=== PATIENT | female | born 1960 | race Caucasian/White ===

== ENCOUNTER 2019-10-16 08:00 | Outpatient (CLI) | payer BC ==
[2019-10-16 12:59] LABS: BASOPHILS # (AUTO) 0.1 10^3/uL (0.0-0.1); BASOPHILS % (AUTO) 0.7 %; EOSINOPHILS # (AUTO) 0.3 10^3/uL (0.0-0.7); EOSINOPHILS % (AUTO) 2.5 %; HGB - HEMOGLOBIN 10.1 g/dL (12.0-16.0); LYMPHOCYTES # (AUTO) 1.5 10^3/uL (1.5-3.5); MEAN CORPUSCULAR HEMOGLOBIN 25.7 pg (27.0-31.0); MEAN CORPUSCULAR VOLUME 85.8 fL (81.0-99.0); MEAN PLATELET VOLUME 10.7 fL (7.9-10.8); MONOCYTES # (AUTO) 0.7 10^3/uL (0.0-1.0); MONOCYTES % (AUTO) 5.8 %; NEUTROPHILS # (AUTO) 9.2 10^3/uL (1.5-6.6); NEUTROPHILS % (AUTO) 77.5 %; PLT - PLATELET COUNT 423 10^3/uL (130-450); RED BLOOD COUNT 3.93 10^6/uL (4.20-5.40); RED CELL DISTRIBUTION WIDTH 16.9 % (12.0-15.0); WHITE BLOOD COUNT 11.8 x10^3/uL (4.8-10.8)
[2019-10-16 13:27] LABS: ALBUMIN 3.3 g/dL (3.2-5.5); ALBUMIN/GLOBULIN RATIO 1.1 (1.0-2.2); BILIRUBIN,TOTAL 0.6 mg/dL (0.2-1.0); CREATININE 0.8 mg/dL (0.4-1.0); TOTAL PROTEIN 6.3 g/dL (6.7-8.2)
== END 2019-10-16 23:59 | disposition home or self-care (01) ==
LOC: LAB.WCP 08:00
PROVIDERS: ATTEND Family Medicine
DX: F10.20 Alcohol dependence, uncomplicated (principal); E03.9 Hypothyroidism, unspecified; D50.9 Iron deficiency anemia, unspecified
CPT/HCPCS: 36415; 80053; 84443; 85025

== ENCOUNTER 2020-01-08 04:33 | Outpatient (CLI) | payer BC | END 2020-01-08 04:34 | disposition critical access hospital (66) | LOC: EMS 04:33 | PROVIDERS: ATTEND Surgery | DX: S89.91XA Unspecified injury of right lower leg, initial encounter (principal); X58.XXXA Exposure to other specified factors, initial encounter; Y92.009 Unspecified place in unspecified non-institutional (private) residence as the place of occurrence of the external cause | CPT/HCPCS: A0425; A0427 ==

== ENCOUNTER 2020-01-08 04:47 | Emergency (ER) | payer BC ==
--- NOTE | 2020-01-08 04:57 | ED Physician Documentation ---
History of Present Illness - Stated complaint Stated Complaint: GLF/ BROKEN LEG - Chief complaint Chief Complaint: Trauma Ext - Additonal information Additional information: This is a 59-year-old female with a history of hypothyroidism anxiety, and daily alcohol use, presents with an open fracture to her right leg. Patient states she was walking in her house and she heard a crack and then fell and she noticed bleeding in the bone sticking out of her right ankle. EMS was called when they arrived she had an obvious open fracture. She received 2 mg of morphine in route with excellent relief of her pain. She denies numbness in the leg, states that she can wiggle the fingers. She did not hit her head or any other part of her body. She states that she did drink around 2 hours prior to injury, she states she typically drinks a sixpack of beer a day. She denies any history of alcohol withdrawal. She has no head pain neck pain back pain chest pain or abdominal discomfort. Review of Systems Constitutional: denies: Fever Cardiac: denies: Chest pain / pressure Respiratory: denies: Dyspnea GI: denies: Abdominal Pain Skin: reports: Laceration (s) Musculoskeletal: reports: Extremity pain Neurologic: denies: Focal weakness PD PAST MEDICAL HISTORY - Past Medical History Cardiovascular: None, Murmur Respiratory: None Endocrine/Autoimmune: HyPOthyroidism GI: None : None Psych: Depression, Anxiety, Panic attacks, Claustrophobia Musculoskeletal: None - Past Surgical History General: EGD /NUCLEAR MEDICINE PET CT TECHNOLOGIST: Hysterectomy HEENT: Tonsil/Adenoidectomy - Present Medications Home Medications: Ambulatory Orders Medication Instructions Recorded Confirmed Escitalopram [Lexapro] 10 mg PO DAILY 12/06/14 01/08/20 Levothyroxine [Synthroid] 75 mcg PO QDAC 12/06/14 01/08/20 Olanzapine/Fluoxetine HCl [Symbyax 1 each PO DAILY 12/06/14 01/08/20 12-25 mg Capsule] Zolpidem [Ambien] 10 mg PO HS 12/06/14 01/08/20 oxyCODONE/ACET 5/325 [Percocet 5 5 mg PO DAILY PRN 12/06/14 01/08/20 mg/325 mg] - Allergies Allergies/Adverse Reactions: Allergies Allergy/AdvReac Type Severity Reaction Status Date / Time No Known Drug Allergies Allergy Verified 01/08/20 04:59 PD ED PE NORMAL - Vitals Vital signs reviewed: Yes - General General: Alert and oriented X 3 - HEENT HEENT: Atraumatic, PERRL - Neck Neck: Supple, no meningeal sign - Cardiac Cardiac: RRR, No murmur - Respiratory Respiratory: No respiratory distress, Clear bilaterally - Abdomen Abdomen: Normal bowel sounds, Soft, Non tender, Non distended - Derm Derm: Warm and dry - Extremities Extremities: Other (On the right lower extremity there is an obvious open fracture of the ankle the tibia is extending out medially through a 5 cm laceration, the articular surface of the tibia is clearly visible and the foot is shifted laterally with a clear fracture dislocation. She has a strong 2+ dorsalis pedis pulse. The posterior tibial artery is actually visible in the laceration and it appears transected. Her sensation is intact over the entire foot, she is able to wiggle her toes. The remainder of the proximal tibia and fibula, as well as the upper leg are atraumatic in appearance. There is no significant active bleeding, she had a slight bruise on arrival.) - Neuro Neuro: Alert and oriented X 3, No motor deficit, No sensory deficit, Normal speech - Psych Psych: Normal mood, Normal affect Results - Vitals Vitals: Vital Signs - 24 hr 01/08/20 01/08/20 01/08/20 04:49 05:02 05:17 Temperature 36.5 C Heart Rate 81 78 78 Respiratory 16 21 18 Rate Blood Pressure 108/61 112/68 109/71 O2 Saturation 99 99 100 01/08/20 01/08/20 01/08/20 05:22 05:27 05:30 Temperature Heart Rate 78 82 90 Respiratory 15 13 15 Rate Blood Pressure 109/72 117/75 139/91 H O2 Saturation 99 98 100 01/08/20 01/08/20 01/08/20 05:37 05:41 05:45 Temperature Heart Rate 82 82 83 Respiratory 10 L 12 15 Rate Blood Pressure 145/84 H 139/76 H 126/81 H O2 Saturation 99 98 97 01/08/20 01/08/20 01/08/20 05:47 05:56 06:00 Temperature Heart Rate 81 85 82 Respiratory 11 L 16 14 Rate Blood Pressure 126/81 H 116/66 111/62 O2 Saturation 96 96 96 01/08/20 01/08/20 01/08/20 06:02 06:04 06:06 Temperature Heart Rate 90 95 97 Respiratory 18 19 15 Rate Blood Pressure 111/62 111/62 O2 Saturation 100 100 98 01/08/20 01/08/20 01/08/20 06:08 06:10 06:14 Temperature Heart Rate 98 99 105 H Respiratory 23 20 21 Rate Blood Pressure 100/58 L 100/58 L 149/93 H O2 Saturation 96 100 94 01/08/20 01/08/20 01/08/20 06:20 06:30 06:36 Temperature 36.8 C Heart Rate 102 H 95 89 Respiratory 18 14 15 Rate Blood Pressure 109/90 H 112/88 H 128/89 H O2 Saturation 98 97 97 01/08/20 01/08/20 01/08/20 06:38 06:43 06:47 Temperature 36.7 C Heart Rate 89 87 91 Respiratory 16 12 14 Rate Blood Pressure 128/89 H 123/76 122/66 O2 Saturation 95 95 96 01/08/20 01/08/20 01/08/20 06:54 06:56 07:01 Temperature 36.8 C Heart Rate 86 86 96 Respiratory 18 24 13 Rate Blood Pressure 122/66 106/65 110/67 O2 Saturation 96 96 97 01/08/20 01/08/20 01/08/20 07:20 08:00 08:30 Temperature 36.7 C Heart Rate 88 85 84 Respiratory 22 12 14 Rate Blood Pressure 103/66 98/73 120/68 O2 Saturation 95 96 96 Oxygen O2 Source Nasal cannula Oxygen Flow Rate 2 - Labs Labs: Laboratory Tests 01/08/20 01/08/20 01/08/20 05:15 05:15 05:15 WBC 20.5 H RBC 3.84 L Hgb 10.6 L Hct 32.7 L MCV 85.2 MCH 27.6 MCHC 32.4 RDW 17.9 H Plt Count 450 MPV 9.3 Neut # (Auto) Not Reportable Lymph # (Auto) Not Reportable [place] # (Auto) Not Reportable Eos # (Auto) Not Reportable Baso # (Auto) Not Reportable Absolute Nucleated RBC Not Reportable Total Counted 100 Band Neuts % (Manual) 0 Abnorm Lymph % (Manual) 0 Nucleated RBC % Not Reportable Neutrophils # (Manual) 18.0 H Lymphocytes # (Manual) 1.8 Monocytes # (Manual) 0.6 Eosinophils # (Manual) 0.0 Basophils # (Manual) 0.0 Differential Comment MANUAL DIFFERENTIAL WBC Morphology NORMAL APPEARANCE Platelet Estimate NORMAL (130-450,000) Platelet Morphology NORMAL APPEARANCE RBC Morph Micro Appear NORMAL APPEARANCE PT 19.3 H INR 1.7 H Sodium 132 L Potassium 4.0 Chloride 96 L Carbon Dioxide 23 Anion Gap 13.0 BUN 5 L Creatinine 0.8 Estimated GFR (MDRD) 73 L Glucose 126 H Calcium 8.3 L Total Bilirubin 0.7 AST 35 ALT 36 Alkaline Phosphatase 97 Total Protein 6.2 L Albumin 3.3 Globulin 2.9 Albumin/Globulin Ratio 1.1 Lipase 32 Ethyl Alcohol 174.7 - Rads (name of study) XR ankle r Radiology: Other (Lateral dislocation of the talus with oblique fibular fracture and posterior malleolus are fracture) XR ankle R post reduction Radiology: Other (Improved alignment, medial clear space widening and posterior malleolus fracture evident in addition to fibula fracture) Procedures - Reduction Body part reduced: Right, Ankle Fracture or dislocation: Fracture dislocation Anesthesia: Conscious sedation Reduction aftercare: Other (After verbal and written consent was obtained, sedation was acheived with ketamine as noted below. Using traction to pull the foot longitudinally and medially, I was unable to perform a complete reduction, the talus appeared to get caught or stuck and slid back out of place. Given the obvious soft tissue and arterial injury from the fracture/dislocation, I am concerned that repeated unsuccessful attempts at reduction will cause more i njury so Dr. Mcdaniel was consulted for assitance with reduction, he arrived and reduction was performed - refer to his note for details.) - Procedural sedation Sedation prep: Informed consent, Time out completed, AHA 2 - mild disease (Mallampati II, thyromental distance 3 finger breadths. Risk factors for difficult airway include obesity.), IV O2 monitor, ET CO2 monitor, RT present, Other (Airway equipment including BVM present.) Sedation medications: fentanyl, ketamine Patient status during sedation: Unresponsive Sedation recovery: Back to baseline, Other (Mild agitation on recovery, but this resolved quickly wihtout pharmacologic intervention.) Time in sedation (Minutes): 36 PD MEDICAL DECISION MAKING - ED course ED course: On arrival patient is awake, alert, she has an obvious fractures location of her right ankle, otherwise her exam is atraumatic. Her pain is well controlled. She is given 2 g of cefazolin IV, and x-rays were obtained confirming a fracture dislocation of her right ankle. She has strong DP pulse and capillary refill, is able to wiggle all toes, sensation intact. Procedural sedation was performed with ketamine and I attempted reduction, was quite difficult and unstable, Dr. Mcdaniel of orthopedics Was consulted, and using ketamine we were able to reduce the fracture dislocation. Afterward she continues to be able to wiggle her toes, has brisk capillary refill, and can feel sensation over her entire foot. A Ortho-Glass posterior slab and stirrup were placed, I did clean the wound with a liter of normal saline and placed a clean gauze with sterile normal saline over top of the wound prior to splinting and reduction. Postreduction films were obtained. After speaking with Dr. Mcdaniel, given patient has a posterior tibial artery injury and very unstable fracture, it sounds like she will be best served at [facility]. I spoke with [facility] and Dr. Velázquez the [facility] emergency department accepted the patient for transfer. She will be transferred via ALS. Patient agrees with the plan. Her labs are notable for a mildly elevated INR though she is not on blood thinners, she also has a leukocytosis likely from demargination, and a mild hyponatremia. I think her mild lab abnormalities are likely secondary to her alcohol use, sounds like she is a daily drinker. She has no signs of withdrawal at this time but would likely benefit from CIWA scoring when she is admitted. Pt remained stable with well controlled pain at the time of transfer. Departure - Departure Disposition: 02 Transfer Acute Care Hosp Clinical Impression: Fracture dislocation of ankle Qualifiers: Encounter type: initial encounter Fracture type: open Open fracture type: open type III Laterality: right Qualified Code(s): S82.891C - Other fracture of right lower leg, initial encounter for open fracture type IIIA, IIIB, or IIIC Condition: Stable Discharge Date/Time: 01/08/20 08:35
[2020-01-08] MEDS ORDERED: KETAMINE 500 MG/10 ML VIAL IVP STA ×6 (05:00→06:14)
[2020-01-08] MEDS ORDERED: fentaNYL 100 MCG/2 ML VIAL IVP STA (05:05)
[2020-01-08 05:23] LABS: BASOPHILS % (AUTO) 0.5 %; HGB - HEMOGLOBIN 10.6 g/dL (12.0-16.0); LYMPHOCYTES % (AUTO) 10.1 %; MEAN CORPUSCULAR HEMOGLOBIN 27.6 pg (27.0-31.0); MEAN CORPUSCULAR HGB CONC 32.4 g/dL (32.0-36.0); MEAN CORPUSCULAR VOLUME 85.2 fL (81.0-99.0); MEAN PLATELET VOLUME 9.3 fL (7.9-10.8); MONOCYTES % (AUTO) 5.1 %; NEUTROPHILS % (AUTO) 82.6 %; PLT - PLATELET COUNT 450 10^3/uL (130-450); RED BLOOD COUNT 3.84 10^6/uL (4.20-5.40); RED CELL DISTRIBUTION WIDTH 17.9 % (12.0-15.0); WHITE BLOOD COUNT 20.5 x10^3/uL (4.8-10.8)
--- NOTE | 2020-01-08 05:23 | XRAY Report ---
Reason: open fracture Procedure Date: 01/08/2020 Accession Number: [id number] / [id number] Procedure: XR - Ankle 2 View RT CPT Code: Final Report FULL RESULT: EXAM: RIGHT ANKLE RADIOGRAPHY EXAM DATE: 01/08/2020 05:14 AM. CLINICAL HISTORY: Open fracture. COMPARISON: None. TECHNIQUE: 2 views. FINDINGS: Bones: Oblique fibular shaft fracture and posterior malleolar fracture. Joints: Lateral dislocation of the talus from the tibia. Soft Tissues: Soft tissue swelling. Open fracture medially. IMPRESSION: Lateral dislocation of the talus, with oblique fibular fracture and posterior malleolar fracture. RADIA
[2020-01-08] MEDS ORDERED: ONDANSETRON 4 MG/2 ML VIAL IVP STA (05:24)
[2020-01-08] MEDS ORDERED: ONDANSETRON 4 MG/2 ML VIAL ONE (05:26)
[2020-01-08 05:29] LABS: INR 1.7 (0.8-1.2); PT - PROTHROMBIN TIME 19.3 secs (9.9-12.6)
[2020-01-08 05:30] LABS: ABNORMAL LYMPHS % (MANUAL) 0 %; BAND NEUTROPHILS % (MANUAL) 0 %
[2020-01-08] MEDS ORDERED: SODIUM CHLORIDE 0.9% 1,000 ML IV ONE (05:33)
[2020-01-08] MEDS ORDERED: ceFAZolin 2 GM in SODIUM CHLORIDE 0.9% 100ML 100 ML IV STA (05:34)
[2020-01-08 05:46] LABS: ALBUMIN 3.3 g/dL (3.2-5.5); ALBUMIN/GLOBULIN RATIO 1.1 (1.0-2.2); BILIRUBIN,TOTAL 0.7 mg/dL (0.2-1.0); CALCIUM 8.3 mg/dL (8.5-10.3); CREATININE 0.8 mg/dL (0.4-1.0); TOTAL PROTEIN 6.2 g/dL (6.7-8.2)
[2020-01-08 05:57] LABS: LYMPHOCYTES # (MANUAL) 1.8 10^3/uL (1.5-3.5); LYMPHOCYTES % (MANUAL) 9 %; MONOCYTES # (MANUAL) 0.6 10^3/uL (0.0-1.0)
[2020-01-08 05:58] LABS: PLATELET MORPHOLOGY NORMAL APPEARANCE (NORMAL); RBC MORPHOLOGY (MULTIPLE) NORMAL APPEARANCE (NORMAL)
[2020-01-08 05:59] LABS: DIFFERENTIAL COMMENT MANUAL DIFFERENTIAL; PLATELET ESTIMATE, MANUAL NORMAL (130-450,000) (NORMAL)
--- NOTE | 2020-01-08 06:56 | XRAY Report ---
Reason: post-reduction Procedure Date: 01/08/2020 Accession Number: [id number] / [id number] Procedure: XR - Ankle 3 View RT CPT Code: Final Report FULL RESULT: EXAM: RIGHT ANKLE RADIOGRAPHY EXAM DATE: 01/08/2020 06:41 AM. CLINICAL HISTORY: Post-reduction. COMPARISON: ANKLE 2 VIEW RT 01/08/2020 4:52 AM. TECHNIQUE: 3 views. FINDINGS: Bones: Improved alignment of fibular fracture and posterior malleolar fracture. Osseous loose body in the medial ankle mortise. Joints: Improved alignment of the talus relative to the tibia, but there is persistent lateral subluxation, with widening of the medial mortise. Soft Tissues: Soft tissue swelling. Splint material obscures fine detail. IMPRESSION: Reduction of talar dislocation, with residual lateral subluxation. Improved alignment of fractures. Osseous loose body in the medial ankle mortise. RADIA
[2020-01-08] MEDS ORDERED: MORPHINE 2 MG/ML CARPUJECT IVP PRN (07:49)
[2020-01-08] MEDS ORDERED: TETANUS/DIPHTHERIA/PERTUSSIS 0.5 ML SYRINGE IM ONE (08:17)
[2020-01-08 09:33] VITALS: BP 120/68
--- NOTE | 2020-01-08 17:58 | CONSULTATION NOTE ---
Referring Provider Name of Referring Provider:: Oumar Red MD Consult Date: 01/08/20 Chief Complaint - Chief Complaint Chief Complaint: Asked to assist with reduction of right open ankle fracture dislocation History of Present Illness - History Obtained From History obtained from: Patient and Dr. Red - History of Present Illness HPI Comment/Other: Alesha is a 59-year-old female who reportedly sustained a ground-level fall injuring her right ankle. She reportedly was taken to the emergency room and found to have an open ankle fracture dislocation. Orthopedic MD was contacted initially, case was discussed and plan for reduction in emergency department splinting was developed. Given incomplete orthopedic coverage the plan was to have the patient transferred for definitive care and observation. After attempted reduction by ER MD which failed, orthopedics was again contacted and assistance for reduction requested.I n the meantime by report, it was determined that while the patient had good vascular supply and gross neuro function that the posterior tibial artery was also likely injured. Patient seen in the emergency room. She denies other significant injury aside from the right ankle. History - Past Medical History Cardiovascular: reports: None, Murmur Respiratory: reports: None Endocrine/Autoimmune: reports: HyPOthyroidism GI: reports: None : reports: None Psych: reports: Depression, Anxiety, Panic attacks, Claustrophobia Musculoskeletal: reports: None MRSA Hx?: No - Past Surgical History General: reports: EGD /LVN: reports: Hysterectomy HEENT: reports: Tonsil/Adenoidectomy - POLST Patient has POLST: No Meds/Allgy - Home Medications Home Medications: Ambulatory Orders Medication Instructions Recorded Confirmed Escitalopram [Lexapro] 10 mg PO DAILY 12/06/14 01/08/20 Levothyroxine [Synthroid] 75 mcg PO QDAC 12/06/14 01/08/20 Olanzapine/Fluoxetine HCl [Symbyax 1 each PO DAILY 12/06/14 01/08/20 12-25 mg Capsule] Zolpidem [Ambien] 10 mg PO HS 12/06/14 01/08/20 oxyCODONE/ACET 5/325 [Percocet 5 5 mg PO DAILY PRN 12/06/14 01/08/20 mg/325 mg] - Allergies Allergies/Adverse Reactions: Allergies Allergy/AdvReac Type Severity Reaction Status Date / Time No Known Drug Allergies Allergy Verified 01/08/20 04:59 Exam - Physical Exam Comments/Other: Upon initial examination patient is noted to have a long oblique medial sided right ankle open wound with the distal tibia and medial malleolus as well as articular surface of the tibia visualized. There appears to be a ligated posterior tibial artery just poterior to visualized medial maleolus, though no other neurovascular structures are visualized well nor are medial sided te ndinous structures. Patient is able to initiate flexion extension of toes and ankle she has a palpa ble dorsalis pedis with capillary refill less than 1 to 1/2 seconds all toes with all toes equally warm throughout. Foot compartments calf soft. She has gross light touch sensation noted in the toes and webspaces. Post reduction and splinting patient is also able to flex extend her toes she has brisk capillary refill unchanged from prereduction toes equally warm throughout. The talus is noted to be grossly under the tibia and the medial malleolus is now inside the soft tissue envelope. Conclusion/Plan - Diagnosis Diagnosis: Right open bimalleolar fracture dislocation of ankle - Lab Results Fish Bones: 01/08/20 05:15 01/08/20 05:15 - Other Other Results/Comments: Alesha is a 59-year-old female with a right open ankle bimalleolar fracture dislocation. She also appears to have a posterior tibial artery injury though with continued good vascular supply to the foot and toes. Patient is encountered prior to successful reduction and the injury is discussed with her. Significance of her injury and the potential for significant neurovascular injury and the potential for worsening of that with attempted reduction is discussed. Risks reviewed though R/B/A previously discussed and informed consent previously given. With anesthesia/sedation per emergency medicine team, patient has reduction and splinting performed. Please see procedure note below. We discussed incomplete orthopedic coverage. We discussed the importance of timely orthopedic surgical intervention and the importance of appropriate monitoring. This will not be available during the entire time that it would be required. Furthermore it does appear as if the patient has a vascular injury particularly to the posterior tibial artery. Fortunately she has good vascular supply to her foot and toes though there may be indication for potential vascular repair. The services are unavailable at this hospital at this time. This is discussed with Dr. Red as it had been previously and immediate transfer is advised. Procedure: Reduction under sedation of right open ankle bimalleolar fracture dislocation Procedural indications right open ankle fracture dislocation Procedure informed consent previously given after discussion with ER staff. This is again discussed with patient with orthopedic corporate consultant. Patient verbalized her wish to proceed with attempted reduction. After administration of ketamine and other medications per emergency medicine team with a traction countertraction maneuver with flexion of the hip to 90 degrees and knee to 90 degrees the injury orientation is re-created thereby attempting to get the talus around the distal lateral aspect of the tibia this is initially successful then lost and then reperformed and able to maintain with reduction of the talus under the tibia. A sterile tongue depressor is used to help guide the skin around the medial malleolus and to help avoid entrapment of soft tissues. It should be noted that there appears to be a ligated end of the posterior tibial artery just posterior to the medial malleolus which is unchanged post reduction. There is no obvious interposed tissue in the medial gutter. A moist saline sterile gauze is placed in the wound followed by sterile 4 x 4's Followed by soft padding and fiberglass splinting with maintenance of reduction until hardening of the fiberglass. Patient is able to continue to flex and extend toes and has brisk capillary refill all toes post reduction and splinting Postreduction films show significantly improved position of the talus under the tibia though not completely reduced medially. There do appear to be potential intervening bone fragments in the medial gutter and continued displacement at the syndesmosis and fibula.
== END 2020-01-08 08:35 | disposition short-term general hospital (02) ==
LOC: EDUNIT# → ED 04:47
DX: S82.841C Displaced bimalleolar fracture of right lower leg, initial encounter for open fracture type IIIA, IIIB, or IIIC (principal); S85.1 Injury of tibial artery; W18.30XA Fall on same level, unspecified, initial encounter; Y93.01 Activity, walking, marching and hiking; Y92.009 Unspecified place in unspecified non-institutional (private) residence as the place of occurrence of the external cause
CPT/HCPCS: 27810; 36415; 80053; 80320; 83690; 85025; 85610; 90471; 94770; 99152; 99153; 99284

== ENCOUNTER 2020-01-08 09:01 | Outpatient (CLI) | payer BC | END 2020-01-08 09:02 | disposition short-term general hospital (02) | LOC: EMS 09:01 | PROVIDERS: ATTEND Surgery | DX: S82.891B Other fracture of right lower leg, initial encounter for open fracture type I or II (principal); S85.16 Unspecified injury of posterior tibial artery; X58.XXXA Exposure to other specified factors, initial encounter; Y92.009 Unspecified place in unspecified non-institutional (private) residence as the place of occurrence of the external cause | CPT/HCPCS: A0425; A0426 ==

== ENCOUNTER 2020-03-27 15:30 | Outpatient (CLI) | payer BC | END 2020-03-27 23:59 | disposition home or self-care (01) | LOC: LAB.R 15:30 | PROVIDERS: ATTEND Family Medicine | DX: L97.519 Non-pressure chronic ulcer of other part of right foot with unspecified severity (principal) | CPT/HCPCS: 87070; 87181; 87205 ==

== ENCOUNTER 2020-06-10 13:15 | Outpatient (CLI) | payer BC | END 2020-06-10 13:16 | disposition critical access hospital (66) | LOC: EMS 13:15 | PROVIDERS: ATTEND Surgery | DX: M25.512 Pain in left shoulder (principal); M25.511 Pain in right shoulder; M54.2 Cervicalgia; R60.0 Localized edema; R53.1 Weakness; W05.0XXA Fall from non-moving wheelchair, initial encounter; Y92.008 Other place in unspecified non-institutional (private) residence as the place of occurrence of the external cause | CPT/HCPCS: A0425; A0429 ==

== ENCOUNTER 2020-06-10 13:35 | Emergency (ER) | payer BC ==
[2020-06-10] MEDS ORDERED: PANTOPRAZOLE 40 MG VIAL IVP STA (13:51)
[2020-06-10] MEDS ORDERED: SODIUM CHLORIDE 0.9% 1,000 ML IV STA ×3 (13:51→13:55)
--- NOTE | 2020-06-10 14:01 | ED Physician Documentation ---
PD HPI GI BLEED - Stated complaint Stated Complaint: GLF/WEAKNESS - History obtained from History obtained from: Patient, EMS - History of Present Illness Timing - onset: How many days ago (3) Timing - duration: Days (3) Timing - details: Gradual onset Pain level max: 0 Pain level now: 0 Associated symptoms: Black/tarry stool Contributing factors: Alcohol use (States has not had a drink for 3 to 4 days). No: Sick contact, Bad food, Travel, Recent antibiotics, Aspirin use, NSAID use, Anticoagulated Improved by: Other (nothing) Worsened by: Other (nothing) Recently seen: Not recently seen - Additional information Additional information: 60-year-old female states that she has a history of GI bleeds in the past. She states she does not have a history of esophageal varices. She states she has been having dark tarry stools for the past several days. Increasing swelling in her legs as well. She states that she feels tired and weak. Nothing makes it better or worse. Today she slid out of her wheelchair at home. She passed from a fracture back in December of this year. She states she is to be in the cast for another 8 weeks. No difficulty breathing. No chest pain. No fevers. No cough. Review of Systems Ten Systems: 10 systems reviewed and negative Constitutional: denies: Fever, Chills Ears: denies: Ear pain Nose: denies: Rhinorrhea / runny nose, Congestion : denies: Dysuria Skin: denies: Rash Musculoskeletal: denies: Neck pain, Back pain Neurologic: denies: Headache PD PAST MEDICAL HISTORY - Past Medical History Cardiovascular: None, Murmur Respiratory: None Endocrine/Autoimmune: HyPOthyroidism GI: None : None Psych: Depression, Anxiety, Panic attacks, Claustrophobia Musculoskeletal: None - Past Surgical History Past Surgical History: Yes General: EGD /ORDER ENTRY ADMINISTRATOR: Hysterectomy HEENT: Tonsil/Adenoidectomy - Present Medications Home Medications: Ambulatory Orders Medication Instructions Recorded Confirmed Brimonidine Tartrate/Timolol 1 drp EACHEYE DAILY 06/10/20 [Combigan 0.2%-0.5% Eye Drops] Buspirone HCl 20 mg PO BID 06/10/20 Escitalopram [Lexapro] 20 mg PO DAILY 06/10/20 Fluoxetine HCl 60 mg PO QPM 06/10/20 Levothyroxine [Synthroid] 125 mcg PO DAILY 06/10/20 OLANZapine [Olanzapine] 10 mg PO QPM 06/10/20 Trazodone HCl 0.5 - 1 tab PO QPM PRN 06/10/20 oxyCODONE [Roxicodone] 06/10/20 - Allergies Allergies/Adverse Reactions: Allergies Allergy/AdvReac Type Severity Reaction Status Date / Time No Known Drug Allergies Allergy Verified 06/10/20 14:06 - Social History Does the pt smoke?: No Smoking Status: Never smoker Does the pt drink ETOH?: Yes Does the pt have substance abuse?: No - Immunizations Immunizations are current?: Yes - POLST Patient has POLST: No PD ED PE NORMAL - Vitals Vital signs reviewed: Yes - General General: Alert and oriented X 3, Other (Pale) - HEENT HEENT: Moist mucous membranes, Other (Pale conjunctiva, pale tongue. Pale skin.) - Neck Neck: Supple, no meningeal sign - Cardiac Cardiac: RRR, Strong equal pulses - Respiratory Respiratory: No respiratory distress, Clear bilaterally - Abdomen Abdomen: Soft, Non tender, Non distended - Derm Derm: Warm and dry - Extremities Extremities: Other (2+ pitting edema left lower extremity. Right lower extremity is in a cast) - Neuro Neuro: Alert and oriented X 3 - Psych Psych: Normal mood, Normal affect Results - Vitals Vitals: Vital Signs - 24 hr 06/10/20 06/10/20 06/10/20 13:46 15:36 15:50 Temperature 36.9 C 35.6 C L 35.6 C L Heart Rate 89 81 78 Respiratory 18 18 15 Rate Blood Pressure 129/85 H 130/74 143/66 H O2 Saturation 97 06/10/20 06/10/20 06/10/20 16:00 16:36 17:18 Temperature 35.8 C L 35.8 C L 35.8 C L Heart Rate 79 80 82 Respiratory 19 22 16 Rate Blood Pressure 132/77 H 132/63 H 117/96 H O2 Saturation 98 99 06/10/20 06/10/20 06/10/20 17:34 17:40 17:50 Temperature 35.9 C L 35.9 C L 35.7 C L Heart Rate 75 94 91 Respiratory 16 20 17 Rate Blood Pressure 123/90 H 145/77 H 141/64 H O2 Saturation Oxygen O2 Source Room air - Labs Labs: Laboratory Tests 06/10/20 06/10/20 06/10/20 13:55 13:55 13:55 WBC 32.8 H RBC 1.72 L Hgb 4.0 L* Hct 12.8 L* MCV 74.4 L MCH 23.3 L MCHC 31.3 L RDW 17.7 H Plt Count 772 H MPV 8.6 Reticulocyte % (Auto) Neut # (Auto) 27.6 H Lymph # (Auto) 1.1 L [place] # (Auto) 2.6 H Eos # (Auto) 0.1 Baso # (Auto) 0.1 Absolute Nucleated RBC 0.56 Nucleated RBC % 1.7 Manual Slide Review Indicated WBC Morphology 1+ TOXIC GRANULATION Platelet Estimate INCREASED (>450,000) Platelet Morphology NORMAL APPEARANCE RBC Morph Micro Appear 1+ BASO STIPPLING Absolute Retic PT 25.2 H INR 2.3 H APTT 27.0 Sodium Potassium Chloride Carbon Dioxide Anion Gap BUN Creatinine Estimated GFR (MDRD) Glucose Calcium Iron TIBC Transferrin Total Bilirubin AST ALT Alkaline Phosphatase B-Natriuretic Peptide Total Protein Albumin Globulin Albumin/Globulin Ratio Lipase TSH Free T4 Ethyl Alcohol Blood Type A POSITIVE Antibody Screen NEGATIVE Crossmatch See Detail 06/10/20 06/10/20 06/10/20 13:55 13:55 13:55 WBC RBC Hgb Hct MCV MCH MCHC RDW Plt Count MPV Reticulocyte % (Auto) Neut # (Auto) Lymph # (Auto) [place] # (Auto) Eos # (Auto) Baso # (Auto) Absolute Nucleated RBC Nucleated RBC % Manual Slide Review WBC Morphology Platelet Estimate Platelet Morphology RBC Morph Micro Appear Absolute Retic PT INR APTT Sodium 105 L* Potassium 4.4 Chloride 72 L* Carbon Dioxide 21 Anion Gap 12.0 BUN 15 Creatinine 1.0 Estimated GFR (MDRD) 56 L Glucose 134 H Calcium 7.6 L Iron < 6 L TIBC 302 Transferrin 216 Total Bilirubin 0.9 AST 224 H ALT 89 H Alkaline Phosphatase 164 H B-Natriuretic Peptide 268 H Total Protein 5.0 L Albumin 2.6 L Globulin 2.4 Albumin/Globulin Ratio 1.1 Lipase 800 H TSH Free T4 Ethyl Alcohol < 5.0 Blood Type Antibody Screen Crossmatch 06/10/20 06/10/20 13:55 15:07 WBC RBC 1.63 L Hgb Hct MCV MCH MCHC RDW Plt Count MPV Reticulocyte % (Auto) 4.55 H Neut # (Auto) Lymph # (Auto) [place] # (Auto) Eos # (Auto) Baso # (Auto) Absolute Nucleated RBC Nucleated RBC % Manual Slide Review WBC Morphology Platelet Estimate Platelet Morphology RBC Morph Micro Appear Absolute Retic 0.074 PT INR APTT Sodium Potassium Chloride Carbon Dioxide Anion Gap BUN Creatinine Estimated GFR (MDRD) Glucose Calcium Iron TIBC Transferrin Total Bilirubin AST ALT Alkaline Phosphatase B-Natriuretic Peptide Total Protein Albumin Globulin Albumin/Globulin Ratio Lipase TSH 1.41 Free T4 1.04 Ethyl Alcohol Blood Type Antibody Screen Crossmatch PD MEDICAL DECISION MAKING - ED course Complexity details: reviewed results, re-evaluated patient, considered differential, d/w patient, d/w school plant consultant ED course: Patient with multiple medical issues today. She is significantly anemic, likely from an upper GI bleed. Given Protonix and Rocephin. Hemoglobin is 4. She was started on blood transfusions as well. Discussed the case with Dr. Ortiz, hospitalist who spoke with our general surgeon here and they feel that the patient is too sick to be in this hospital. They are concerned about potential varices. Patient states she does not have a history of varices and has no vomiting of blood. She is also significantly hyponatremic, which is new for her. She was given gentle IV fluids and she will be transferred to [facility] for further care. Discussed the case with Dr. Boris Allred, navigating officer who graciously accepts in transfer. Patient is hemodynamically stable. COBRA forms completed This document was made in part using voice recognition software. While efforts are made to proofread this document, sound alike and grammatical errors may occur. 2 units of blood were also given Departure - Departure Disposition: 02 Transfer Acute Care Hosp Clinical Impression: Hyponatremia, Hypochloremia, Peripheral edema GI bleed Qualifiers: GI bleed type/associated pathology: unspecified gastrointestinal hemorrhage type Qualified Code(s): K92.2 - Gastrointestinal hemorrhage, unspecified Anemia Qualifiers: Anemia type: unspecified type Qualified Code(s): D64.9 - Anemia, unspecified Condition: Stable Discharge Date/Time: 06/10/20 19:22
[2020-06-10 14:17] LABS: BASOPHILS # (AUTO) 0.1 10^3/uL (0.0-0.1); BASOPHILS % (AUTO) 0.2 %; EOSINOPHILS # (AUTO) 0.1 10^3/uL (0.0-0.7); EOSINOPHILS % (AUTO) 0.2 %; LYMPHOCYTES # (AUTO) 1.1 10^3/uL (1.5-3.5); LYMPHOCYTES % (AUTO) 3.5 %; MEAN CORPUSCULAR HEMOGLOBIN 23.3 pg (27.0-31.0); MEAN CORPUSCULAR HGB CONC 31.3 g/dL (32.0-36.0); MEAN CORPUSCULAR VOLUME 74.4 fL (81.0-99.0); MEAN PLATELET VOLUME 8.6 fL (7.9-10.8); MONOCYTES # (AUTO) 2.6 10^3/uL (0.0-1.0); MONOCYTES % (AUTO) 7.8 %; NEUTROPHILS # (AUTO) 27.6 10^3/uL (1.5-6.6); PLT - PLATELET COUNT 772 10^3/uL (130-450); RED BLOOD COUNT 1.72 10^6/uL (4.20-5.40); RED CELL DISTRIBUTION WIDTH 17.7 % (12.0-15.0); WHITE BLOOD COUNT 32.8 x10^3/uL (4.8-10.8)
[2020-06-10 14:28] LABS: INR 2.3 (0.8-1.2); PT - PROTHROMBIN TIME 25.2 secs (9.9-12.6)
[2020-06-10 14:39] LABS: ALBUMIN 2.6 g/dL (3.2-5.5); ALBUMIN/GLOBULIN RATIO 1.1 (1.0-2.2); ALKALINE PHOSPHATASE 164 IU/L (42-121); ALT ALANINE AMINOTRANSFERASE 89 IU/L (10-60); AST ASPARTATE AMINOTRANSFERASE 224 IU/L (10-42); BILIRUBIN,TOTAL 0.9 mg/dL (0.2-1.0); BUN - BLOOD UREA NITROGEN 15 mg/dL (6-20); CALCIUM 7.6 mg/dL (8.5-10.3); CARBON DIOXIDE - CO2 21 mmol/L (21-32); GLUCOSE 134 mg/dL (70-100)
[2020-06-10 14:41] LABS: LIPASE 800 U/L (22-51)
[2020-06-10 14:42] LABS: CHLORIDE 72 mmol/L (101-111); SODIUM 105 mmol/L (135-145)
[2020-06-10] MEDS ORDERED: cefTRIAXone 1 GM VIAL IVP STA (15:05)
[2020-06-10 15:09] LABS: IRON < 6 ug/dL (28-170); TOTAL IRON BINDING CAPACITY 302 ug/dL (250-450); TRANSFERRIN 216 mg/dL (192-382)
[2020-06-10 15:16] LABS: THYROID STIMULATING HORMONE 1.41 uIU/mL (0.34-5.60)
[2020-06-10 15:16] LABS: ABSOLUTE RETICS # AUTO 0.074 10^6/uL (0.020-0.110); RED BLOOD COUNT 1.63 10^6/uL (4.20-5.40)
[2020-06-10 15:18] LABS: FREE T4 (FREE THYROXINE) 1.04 ng/dL (0.58-1.64)
[2020-06-10 16:16] LABS: PLATELET ESTIMATE, MANUAL INCREASED (>450,000) (NORMAL); PLATELET MORPHOLOGY NORMAL APPEARANCE (NORMAL)
[2020-06-10 18:00] VITALS: BP 141/64
== END 2020-06-10 19:22 | disposition short-term general hospital (02) ==
LOC: EDUNIT# → ED 13:35
DX: K92.2 Gastrointestinal hemorrhage, unspecified (principal); D64.9 Anemia, unspecified; E87.1 Hypo-osmolality and hyponatremia; E87.8 Other disorders of electrolyte and fluid balance, not elsewhere classified; R60.0 Localized edema
CPT/HCPCS: 36415; 36430; 80320; 83540; 83690; 83880; 84439; 84466; 85045; 85610; 85730; 86850; 86900; 86901; 86922; 96374; 96375; 99284; 99285; P9016; 80053; 84443; 85025

== ENCOUNTER 2020-06-10 17:59 | Outpatient (CLI) | payer BC | END 2020-06-10 18:00 | disposition short-term general hospital (02) | LOC: EMS 17:59 | PROVIDERS: ATTEND Surgery | DX: K92.2 Gastrointestinal hemorrhage, unspecified (principal) | CPT/HCPCS: A0425; A0426 ==

== ENCOUNTER 2020-08-20 07:00 | Outpatient (CLI) | payer BC ==
[2020-08-21 19:09] LABS: BILIRUBIN,URINE NEGATIVE (NEGATIVE); GLUCOSE, URINE (UA) NEGATIVE (NEGATIVE); KETONES,URINE (UA) NEGATIVE (NEGATIVE); LEUKOCYTE ESTERASE, URINE SMALL (NEGATIVE); NITRITE,URINE POSITIVE (NEGATIVE); OCCULT BLOOD,URINE NEGATIVE (NEGATIVE); PROTEIN,URINE NEGATIVE (NEGATIVE); UROBILINOGEN,URINE 0.2 (NORMAL) E.U./dL (NORMAL)
[2020-08-21 19:53] LABS: CLARITY,URINE HAZY (CLEAR)
[2020-08-21 19:54] LABS: BACTERIA,URINE Many /HPF (None Seen); RBC,URINE 0-5 /HPF (0-5); SQUAMOUS EPITHELIAL CELL,UR FEW Squamous (<= Few)
== END 2020-08-20 23:59 | disposition home or self-care (01) ==
LOC: LAB.R 07:00
PROVIDERS: ATTEND Family Medicine
DX: R82.90 Unspecified abnormal findings in urine (principal); D64.9 Anemia, unspecified; K92.2 Gastrointestinal hemorrhage, unspecified; E03.9 Hypothyroidism, unspecified
CPT/HCPCS: 81001; 87086; 87181

== ENCOUNTER 2020-08-20 08:00 | Outpatient (CLI) | payer BC ==
[2020-08-20 18:21] LABS: BASOPHILS % (AUTO) 0.3 %; HGB - HEMOGLOBIN 11.9 g/dL (12.0-16.0); LYMPHOCYTES % (AUTO) 15.9 %; MEAN CORPUSCULAR HEMOGLOBIN 26.6 pg (27.0-31.0); MEAN CORPUSCULAR HGB CONC 30.4 g/dL (32.0-36.0); MEAN CORPUSCULAR VOLUME 87.5 fL (81.0-99.0); MONOCYTES % (AUTO) 8.2 %; NEUTROPHILS % (AUTO) 74.9 %; PLT - PLATELET COUNT 765 10^3/uL (130-450); RED BLOOD COUNT 4.47 10^6/uL (4.20-5.40); WHITE BLOOD COUNT 19.1 x10^3/uL (4.8-10.8)
[2020-08-20 18:40] LABS: ABNORMAL LYMPHS % (MANUAL) 0 %
[2020-08-20 19:06] LABS: BAND NEUTROPHILS % (MANUAL) 2 %; EOSINOPHILS # (MANUAL) 0.4 10^3/uL (0-0.7); LYMPHOCYTES # (MANUAL) 1.7 10^3/uL (1.5-3.5); LYMPHOCYTES % (MANUAL) 9 %
[2020-08-20 19:07] LABS: PLATELET ESTIMATE, MANUAL INCREASED (>450,000) (NORMAL); PLATELET MORPHOLOGY 1+ GIANT PLATELETS (NORMAL)
[2020-08-20 19:08] LABS: DIFFERENTIAL COMMENT MANUAL DIFFERENTIAL
[2020-08-20 19:20] LABS: ALBUMIN 2.5 g/dL (3.2-5.5); ALBUMIN/GLOBULIN RATIO 0.5 (1.0-2.2); BILIRUBIN,TOTAL 0.8 mg/dL (0.2-1.0); CALCIUM 8.9 mg/dL (8.5-10.3); TOTAL PROTEIN 7.2 g/dL (6.7-8.2)
[2020-08-20 19:26] LABS: FERRITIN 109.5 ng/mL (11.0-306.8)
[2020-08-20 20:09] LABS: FOLATE < 21.00 ng/mL (5.90 - >24.8)
== END 2020-08-20 23:59 | disposition home or self-care (01) ==
LOC: LAB.WCP 08:00
PROVIDERS: ATTEND Family Medicine
DX: K92.2 Gastrointestinal hemorrhage, unspecified (principal); R82.90 Unspecified abnormal findings in urine; D64.9 Anemia, unspecified; E03.9 Hypothyroidism, unspecified
CPT/HCPCS: 36415; 80053; 81001; 82607; 82728; 82746; 83540; 83690; 84443; 84466; 85025; 87086

== ENCOUNTER 2020-08-21 19:44 | Outpatient (CLI) | payer BC ==
--- NOTE | 2020-08-21 22:35 | Ultrasound Report ---
PROCEDURE: Abdomen Complete INDICATIONS: RUQ ABD PAIN TECHNIQUE: Real-time scanning was performed of the abdominal and retroperitoneal organs, with image documentatio n. COMPARISON: None. FINDINGS: Evaluation limited due to patient motion and inability to breath-hold. Liver: Liver is enlarged with increased hepatic echogenicity and coarse sonographic echotexture comp atible with fatty infiltration. Gallbladder: There are small gallstones and biliary sludge in the region of the gallbladder neck. Gal lbladder wall thickness is within normal limits. No pericholecystic fluid or reported sonographic Mur phy's sign. Biliary ducts: Intrahepatic bile ducts are grossly non-dilated with evaluation limited due to fatty infiltration of the liver. Extrahepatic bile duct caliber measures up to approximately 4 mm but is n ot well visualized. Normal is 6-7 mm or less in diameter, or 10 mm or less post-cholecystectomy. Pancreas: Not well seen. Spleen: Spleen is normal in size and homogeneous in echotexture. Kidneys: Right kidney measures 9.7 cm long; left kidney measures 10.1 cm long. No hydronephrosis. Aorta: Visualized aorta is normal in caliber at less than 3 cm. Iliacs: Proximal common iliac arteries are normal in caliber at less than 2.5 cm. IVC: Intrahepatic inferior vena cava is patent. Miscellaneous: No free abdominal fluid. There is nonspecific fluid distention of the stomach noted. IMPRESSION: 1. Cholelithiasis and biliary sludge without definite evidence of cholecystitis. 2. Hepatomegaly and increased hepatic echogenicity compatible with steatosis. 3. Nonspecific fluid distention of the stomach noted. Multiple attempts were made by the genetic technologist to contact Dr. Mccormick at the conclusion o f the study. Reviewed by: Raheem Telles MD on 08/21/2020 10:34 PM PDT Approved by: Raheem Telles MD on 08/21/2020 10:34 PM PDT Station ID: [id number]
== END 2020-08-21 19:45 | disposition home or self-care (01) ==
LOC: DI 19:44
PROVIDERS: ATTEND Family Medicine
DX: K80.20 Calculus of gallbladder without cholecystitis without obstruction (principal); R16.0 Hepatomegaly, not elsewhere classified
CPT/HCPCS: 76700

== ENCOUNTER 2020-09-04 12:15 | Outpatient (CLI) | payer BC ==
[2020-09-04 18:29] LABS: BASOPHILS % (AUTO) 0.2 %; HGB - HEMOGLOBIN 8.6 g/dL (12.0-16.0); LYMPHOCYTES # (AUTO) 1.5 10^3/uL (1.5-3.5); LYMPHOCYTES % (AUTO) 9.7 %; MEAN CORPUSCULAR HEMOGLOBIN 27.3 pg (27.0-31.0); MEAN CORPUSCULAR HGB CONC 32.3 g/dL (32.0-36.0); MEAN CORPUSCULAR VOLUME 84.4 fL (81.0-99.0); MEAN PLATELET VOLUME 9.2 fL (7.9-10.8); MONOCYTES # (AUTO) 1.1 10^3/uL (0.0-1.0); MONOCYTES % (AUTO) 6.6 %; NEUTROPHILS # (AUTO) 13.1 10^3/uL (1.5-6.6); NEUTROPHILS % (AUTO) 82.7 %; PLT - PLATELET COUNT 770 10^3/uL (130-450); RED BLOOD COUNT 3.15 10^6/uL (4.20-5.40); RED CELL DISTRIBUTION WIDTH 18.2 % (12.0-15.0); WHITE BLOOD COUNT 15.8 x10^3/uL (4.8-10.8)
[2020-09-04 19:21] LABS: ALBUMIN 1.7 g/dL (3.2-5.5); ALBUMIN/GLOBULIN RATIO 0.5 (1.0-2.2); ALKALINE PHOSPHATASE 101 IU/L (42-121); ALT ALANINE AMINOTRANSFERASE < 10 IU/L (10-60); AST ASPARTATE AMINOTRANSFERASE 17 IU/L (10-42); BILIRUBIN,TOTAL 0.5 mg/dL (0.2-1.0); BUN - BLOOD UREA NITROGEN 12 mg/dL (6-20); CALCIUM 7.2 mg/dL (8.5-10.3); CARBON DIOXIDE - CO2 29 mmol/L (21-32); CHLORIDE 89 mmol/L (101-111); CREATININE 0.7 mg/dL (0.4-1.0); GLUCOSE 174 mg/dL (70-100); SODIUM 129 mmol/L (135-145); TOTAL PROTEIN 5.2 g/dL (6.7-8.2)
== END 2020-09-04 23:59 | disposition home or self-care (01) ==
LOC: LAB.R 12:15
PROVIDERS: ATTEND Physician Assistant Medical
DX: M86.172 Other acute osteomyelitis, left ankle and foot (principal); T84.59XA Infection and inflammatory reaction due to other internal joint prosthesis, initial encounter
CPT/HCPCS: 80053; 85025

== ENCOUNTER 2020-09-13 10:46 | Outpatient (CLI) | payer BC | END 2020-09-13 10:47 | disposition critical access hospital (66) | LOC: EMS 10:46 | PROVIDERS: ATTEND Surgery | DX: K62.5 Hemorrhage of anus and rectum (principal) | CPT/HCPCS: A0425; A0427 ==

== ENCOUNTER 2020-09-13 11:01 | Emergency (ER) | payer BC ==
--- NOTE | 2020-09-13 11:26 | ED Physician Documentation ---
PD HPI GI BLEED - Stated complaint Stated Complaint: GI BLEED - Chief complaint Chief Complaint: Abd Pain - History obtained from History obtained from: Patient - History of Present Illness Timing - onset: Yesterday (She and her state she had a bowel movement of maroon-colored blood yesterday and then again today of moderately good volume. They deny black color of it per se. She is feeling generally weak and lightheaded.) Timing - details: Abrupt onset, Intermittant Associated symptoms: Maroon stool Contributing factors: Recent antibiotics. No: Sick contact, Bad food, Alcohol use (She states she had a prior history of alcohol use in the past but none for the past year), NSAID use, Anticoagulated Similar symptoms before: Diagnosis (Bleeding ulcer in the past with an episode back in May and then again this past week.) Recently seen: Emergency Dept, Admitted (She was seen at [facility] for abdominal pain and also some blood in her stool and was transferred to [facility] because of a pancreatic mass. She had scope and biopsy of that on September 06 and another scope on the for apparent gastric remnant ulcer.), Other (seen at [facility] for post op ankle wound infection right ankle, s/p repair May with recent infection; has wound vac on right ankle and has PICC line left arm and is getting IV abx at home infusion currently.) Review of Systems Constitutional: denies: Fever, Chills Nose: denies: Rhinorrhea / runny nose, Congestion Throat: denies: Sore throat Cardiac: reports: Pedal edema. denies: Chest pain / pressure, Palpitations, Calf pain Respiratory: reports: Dyspnea. denies: Cough, Wheezing GI: reports: Abdominal Pain, Nausea, Bloody / black stool. denies: Vomiting, Diarrhea : denies: Dysuria Musculoskeletal: reports: Extremity swelling Neurologic: reports: Generalized weakness. denies: Near syncope, Altered mental status, Headache PD PAST MEDICAL HISTORY - Past Medical History Cardiovascular: None, Murmur Respiratory: None Endocrine/Autoimmune: HyPOthyroidism GI: None, Other (recent diagnosis pancreatic tumor) : None Psych: Depression, Anxiety, Panic attacks, Claustrophobia Musculoskeletal: None - Past Surgical History Past Surgical History: Yes General: EGD /STUDENT SUPPORT SERVICES DIRECTOR: Hysterectomy HEENT: Tonsil/Adenoidectomy - Present Medications Home Medications: Ambulatory Orders Medication Instructions Recorded Confirmed Brimonidine Tartrate/Timolol 1 drp EACHEYE DAILY 06/10/20 [Combigan 0.2%-0.5% Eye Drops] Buspirone HCl 20 mg PO BID 06/10/20 Escitalopram [Lexapro] 20 mg PO DAILY 06/10/20 Fluoxetine HCl 60 mg PO QPM 06/10/20 Levothyroxine [Synthroid] 125 mcg PO DAILY 06/10/20 OLANZapine [Olanzapine] 10 mg PO QPM 06/10/20 Trazodone HCl 0.5 - 1 tab PO QPM PRN 06/10/20 oxyCODONE [Roxicodone] 06/10/20 - Allergies Allergies/Adverse Reactions: Allergies Allergy/AdvReac Type Severity Reaction Status Date / Time No Known Drug Allergies Allergy Verified 09/13/20 11:09 - Social History Does the pt smoke?: No Smoking Status: Never smoker Does the pt drink ETOH?: Yes Does the pt have substance abuse?: No - Immunizations Immunizations are current?: Yes - POLST Patient has POLST: No PD ED PE NORMAL - Vitals Vital signs reviewed: Yes - General General: Alert and oriented X 3, Well developed/nourished, Other (pallor) - HEENT HEENT: Pharynx benign. No: Moist mucous membranes - Neck Neck: Supple, no meningeal sign, No adenopathy - Cardiac Cardiac: No murmur. No: RRR (tachycardic but regular) - Respiratory Respiratory: Clear bilaterally - Abdomen Abdomen: Normal bowel sounds, Soft, Non distended, No organomegaly, Other (tender upper abd and RUQ area. No percussion tenderness. ) - Female Female : Deferred - Rectal Rectal: Deferred - Back Back: No CVA TTP - Derm Derm: Warm and dry. No: Normal color - Extremities Extremities: No tenderness to palpate, Normal ROM s pain, No calf tenderness / cord, Other (1+ edema in both legs. wound vacuum device lateral right ankle without redness surrounding. There is some serosanginous fluid in container. Tender around the area. Healing surgical wounds left ankle. ) - Neuro Neuro: Alert and oriented X 3, No motor deficit, Normal speech Eye Opening: Spontaneous Motor: Obeys Commands Verbal: Oriented GCS Score: 15 Results - Vitals Vitals: Vital Signs - 24 hr 09/13/20 09/13/20 09/13/20 11:10 11:26 11:28 Temperature 36.3 C L 36.4 C L Heart Rate 113 H 109 H 111 H Respiratory 24 16 18 Rate Blood Pressure 138/110 H 90/61 85/55 L O2 Saturation 100 100 99 09/13/20 09/13/20 09/13/20 11:44 12:14 12:30 Temperature Heart Rate 105 H 110 H 106 H Respiratory 19 24 22 Rate Blood Pressure 80/58 L 92/56 L 90/63 O2 Saturation 100 99 99 09/13/20 09/13/20 09/13/20 13:00 13:25 13:30 Temperature 36.2 C L 36.2 C L Heart Rate 108 H 116 H 112 H Respiratory 24 18 24 Rate Blood Pressure 88/63 L 88/63 L 87/60 L O2 Saturation 100 100 09/13/20 09/13/20 09/13/20 13:40 14:00 14:30 Temperature 36.2 C L Heart Rate 114 H 115 H 118 H Respiratory 24 26 H 27 H Rate Blood Pressure 121/96 H 97/69 83/67 L O2 Saturation 100 98 09/13/20 09/13/20 09/13/20 15:00 15:30 16:06 Temperature 36.2 C L Heart Rate 110 H 112 H 115 H Respiratory 27 H 22 20 Rate Blood Pressure 86/60 L 91/70 115/86 H O2 Saturation 100 99 97 09/13/20 09/13/20 09/13/20 16:30 17:00 17:10 Temperature 36.1 C L 36.2 C L Heart Rate 120 H 123 H 118 H Respiratory 22 19 23 Rate Blood Pressure 88/72 L 88/72 L 87/28 L O2 Saturation 100 99 09/13/20 09/13/20 09/13/20 17:15 17:35 17:40 Temperature 36.9 C 36.6 C 36.6 C Heart Rate 116 H 110 H 113 H Respiratory 23 23 22 Rate Blood Pressure 66/35 L 106/47 L 106/47 L O2 Saturation 09/13/20 09/13/20 09/13/20 17:41 17:45 17:55 Temperature 36.6 C 36.3 C L 36.1 C L Heart Rate 113 H 111 H 108 H Respiratory 21 29 H 19 Rate Blood Pressure 106/47 L 101/58 L 91/78 O2 Saturation 100 09/13/20 09/13/20 09/13/20 18:00 18:30 18:56 Temperature 36.4 C L Heart Rate 109 H 109 H 119 H Respiratory 25 H 28 H 24 Rate Blood Pressure 91/78 102/86 H 103/69 O2 Saturation 100 97 09/13/20 09/13/20 09/13/20 19:00 19:42 20:15 Temperature 36.4 C L Heart Rate 116 H 126 H 122 H Respiratory 18 20 20 Rate Blood Pressure 96/68 108/95 H 95/69 O2 Saturation 100 96 09/13/20 09/13/20 09/13/20 20:20 20:30 21:05 Temperature 36.4 C L 36.3 C L Heart Rate 119 H 120 H 117 H Respiratory 18 18 19 Rate Blood Pressure 94/66 92/64 105/57 L O2 Saturation 100 100 09/13/20 09/13/20 21:15 21:30 Temperature 36.1 C L Heart Rate 120 H 122 H Respiratory 20 18 Rate Blood Pressure 105/57 L 98/68 O2 Saturation 100 Oxygen O2 Source Room air - Labs Labs: Laboratory Tests 09/13/20 09/13/20 09/13/20 11:10 11:10 11:10 WBC 15.8 H RBC 1.52 L Hgb 4.6 L* Hct 14.0 L* MCV 92.1 MCH 30.3 MCHC 32.9 RDW 21.2 H Plt Count 518 H MPV 9.5 Neut # (Auto) Not Reportable Lymph # (Auto) Not Reportable [place] # (Auto) Not Reportable Eos # (Auto) Not Reportable Baso # (Auto) Not Reportable Absolute Nucleated RBC Not Reportable Total Counted 100 Band Neuts % (Manual) 0 Abnorm Lymph % (Manual) 0 Myelocytes % Nucleated RBC % Not Reportable Neutrophils # (Manual) 12.2 H Lymphocytes # (Manual) 2.7 Monocytes # (Manual) 0.9 Eosinophils # (Manual) 0.0 Basophils # (Manual) 0.0 Differential Comment MANUAL DIFFERENTIAL Manual Slide Review WBC Morphology Platelet Estimate INCREASED (>450,000) Platelet Morphology NORMAL APPEARANCE RBC Morph Micro Appear 3+ ANISOCYTOSIS PT > 120.0 H* INR Not Reportable APTT > 240.0 H* Fibrinogen Sodium Potassium Chloride Carbon Dioxide Anion Gap BUN Creatinine Estimated GFR (MDRD) Glucose Lactic Acid Calcium Total Bilirubin AST ALT Alkaline Phosphatase Total Protein Albumin Globulin Albumin/Globulin Ratio Lipase Ethyl Alcohol Blood Type A POSITIVE Antibody Screen NEGATIVE Crossmatch See Detail 09/13/20 09/13/20 09/13/20 11:10 11:10 14:28 WBC RBC Hgb Hct MCV MCH MCHC RDW Plt Count MPV Neut # (Auto) Lymph # (Auto) [place] # (Auto) Eos # (Auto) Baso # (Auto) Absolute Nucleated RBC Total Counted Band Neuts % (Manual) Abnorm Lymph % (Manual) Myelocytes % Nucleated RBC % Neutrophils # (Manual) Lymphocytes # (Manual) Monocytes # (Manual) Eosinophils # (Manual) Basophils # (Manual) Differential Comment Manual Slide Review WBC Morphology Platelet Estimate Platelet Morphology RBC Morph Micro Appear PT > 120.0 H* INR > 10.0 H* APTT > 240.0 H* Fibrinogen Sodium 133 L Potassium 3.3 L Chloride 104 Carbon Dioxide 18 L Anion Gap 11.0 BUN 5 L Creatinine 0.6 Estimated GFR (MDRD) 102 Glucose 135 H Lactic Acid 3.3 H* Calcium 7.0 L Total Bilirubin 1.0 AST 26 ALT < 10 L Alkaline Phosphatase 99 Total Protein 3.8 L Albumin 1.2 L Globulin 2.6 Albumin/Globulin Ratio 0.5 L Lipase 14 L Ethyl Alcohol < 5.0 Blood Type Antibody Screen Crossmatch 09/13/20 09/13/20 09/13/20 14:28 21:23 21:23 WBC 32.2 H RBC 2.63 L Hgb 7.9 L Hct 23.9 L MCV 90.9 MCH 30.0 MCHC 33.1 RDW 17.7 H Plt Count 448 MPV 9.5 Neut # (Auto) Not Reportable Lymph # (Auto) Not Reportable [place] # (Auto) Not Reportable Eos # (Auto) Not Reportable Baso # (Auto) Not Reportable Absolute Nucleated RBC Not Reportable Total Counted 100 Band Neuts % (Manual) 6 Abnorm Lymph % (Manual) 0 Myelocytes % 1 H Nucleated RBC % Not Reportable Neutrophils # (Manual) 28.7 H Lymphocytes # (Manual) 2.9 Monocytes # (Manual) 0.3 Eosinophils # (Manual) 0.0 Basophils # (Manual) 0.0 Differential Comment MANUAL DIFFERENTIAL Manual Slide Review Indicated WBC Morphology NORMAL APPEARANCE Platelet Estimate NORMAL (130-450,000) Platelet Morphology NORMAL APPEARANCE RBC Morph Micro Appear 1+ ANISOCYTOSIS PT 37.7 H INR 3.7 H APTT 38.0 H Fibrinogen 226 Sodium Potassium Chloride Carbon Dioxide Anion Gap BUN Creatinine Estimated GFR (MDRD) Glucose Lactic Acid Calcium Total Bilirubin AST ALT Alkaline Phosphatase Total Protein Albumin Globulin Albumin/Globulin Ratio Lipase Ethyl Alcohol Blood Type Antibody Screen Crossmatch 09/13/20 21:23 WBC RBC Hgb Hct MCV MCH MCHC RDW Plt Count MPV Neut # (Auto) Lymph # (Auto) [place] # (Auto) Eos # (Auto) Baso # (Auto) Absolute Nucleated RBC Total Counted Band Neuts % (Manual) Abnorm Lymph % (Manual) Myelocytes % Nucleated RBC % Neutrophils # (Manual) Lymphocytes # (Manual) Monocytes # (Manual) Eosinophils # (Manual) Basophils # (Manual) Differential Comment Manual Slide Review WBC Morphology Platelet Estimate Platelet Morphology RBC Morph Micro Appear PT INR APTT Fibrinogen Sodium 136 Potassium 3.4 L Chloride 106 Carbon Dioxide 17 L Anion Gap 13.0 BUN 5 L Creatinine 0.8 Estimated GFR (MDRD) 73 L Glucose 148 H Lactic Acid Calcium 7.0 L Total Bilirubin AST ALT Alkaline Phosphatase Total Protein Albumin Globulin Albumin/Globulin Ratio Lipase Ethyl Alcohol Blood Type Antibody Screen Crossmatch - Rads (name of study) abd/pelvic CT Radiology: Prelim report reviewed (Cystic pancreatic fluid collection consistent with likely tumor and inflammation.), See rad report PD MEDICAL DECISION MAKING - ED course Complexity details: reviewed old records (Prior records from [facility] subsequently were faxed over to us after a bit of waiting.), reviewed results (Patient with apparent acute blood loss anemia with a hemoglobin of 8 on recent discharge from [facility]. Presume gastric ulcer.), re-evaluated patient, considered differential, d/w patient, d/w family ED course: She is a complicated patient with ankle repair and subsequent wound has a wound VAC and PICC line with antibiotics through the . She had abdominal pain found to have a pancreatic mass at [facility] and transferred to [facility]. There she had a biopsy of that as well as an apparent ulcer bleed by a endoscopy report from the . She was transfused blood there and look like a discharge hemoglobin of 8. She was reportedly well on discharge and 2 days ago and yesterday had small to moderate amount of blood in a bowel movement and then a larger amount today. She is feeling weak and lightheaded. Because of the complications of coagulopathy based on her PT and PTT as well as post gastric bypass and having been recently seen at , it was decided in discussion with our hospitalist here that the [facility] is contacted and they anticipate discharges and a bed available and will call us back shortly. Otherwise we may search for another facility. Meanwhile she is given IV fluids and we will transfuse blood products. She was given albumin initially to help support her blood pressure pending type and crossing. Given the apparent coagulopathy which was reproduced on a repeat blood test, will also give some fresh frozen plasma. Despite unclear evidence in the literature, I did give TXA for the apparent GI bleed. She is also given a PPI and an H2 pablito. Her blood pressure remains moderately to mildly low in the upper 80s to 90s systolic. She is mentating well and conversant. No further bowel movements here. [facility] did call back after an hour or 2 saying they would likely have beds available with discharges pending in the next couple of hours. I talked with the intake physician and at that point the patient's blood pressure was doing well but better. However it is now back under 100 and [facility] called back and said they did not have any ICU beds and so declined transfer. We will look instead at other facilities. The patient is still awake and conversant and mentating well. Blood pressure is in the 80s to 90s. She is ongoing infusions of packed red cells. No further stool output here and her abdomen is not tender. Departure - Departure Disposition: 02 Transfer Acute Care Hosp Clinical Impression: Acute GI bleeding, Peripheral edema, Coagulopathy Hypotension Qualifiers: Hypotension type: unspecified hypotension type Qualified Code(s): I95.9 - Hypotension, unspecified Profound anemia Qualifiers: Anemia type: unspecified type Qualified Code(s): D64.9 - Anemia, unspecified Condition: Stable Record reviewed to determine appropriate education?: Yes
[2020-09-13] MEDS ORDERED: SODIUM CHLORIDE 0.9% 1,000 ML IV STA ×2 (11:27→11:29)
[2020-09-13] MEDS ORDERED: TRANEXAMIC ACID 1,000 MG in SODIUM CHLORIDE 0.9% 100ML 100 ML IV STA (11:27)
[2020-09-13] MEDS ORDERED: FAMOTIDINE 20 MG/2 ML SYRINGE IVP STA (11:27)
[2020-09-13 11:28] LABS: BASOPHILS % (AUTO) 0.1 %; LYMPHOCYTES % (AUTO) 12.1 %; MEAN CORPUSCULAR HEMOGLOBIN 30.3 pg (27.0-31.0); MEAN CORPUSCULAR HGB CONC 32.9 g/dL (32.0-36.0); MEAN CORPUSCULAR VOLUME 92.1 fL (81.0-99.0); MEAN PLATELET VOLUME 9.5 fL (7.9-10.8); MONOCYTES % (AUTO) 9.8 %; NEUTROPHILS % (AUTO) 76.2 %; PLT - PLATELET COUNT 518 10^3/uL (130-450); RED BLOOD COUNT 1.52 10^6/uL (4.20-5.40); RED CELL DISTRIBUTION WIDTH 21.2 % (12.0-15.0); WHITE BLOOD COUNT 15.8 x10^3/uL (4.8-10.8)
[2020-09-13 11:49] LABS: ALBUMIN 1.2 g/dL (3.2-5.5); ALBUMIN/GLOBULIN RATIO 0.5 (1.0-2.2); ALKALINE PHOSPHATASE 99 IU/L (42-121); ALT ALANINE AMINOTRANSFERASE < 10 IU/L (10-60); AST ASPARTATE AMINOTRANSFERASE 26 IU/L (10-42); BUN - BLOOD UREA NITROGEN 5 mg/dL (6-20); CARBON DIOXIDE - CO2 18 mmol/L (21-32); CHLORIDE 104 mmol/L (101-111); CREATININE 0.6 mg/dL (0.4-1.0); GLUCOSE 135 mg/dL (70-100); HGB - HEMOGLOBIN 4.6 g/dL (12.0-16.0); LIPASE 14 U/L (22-51); SODIUM 133 mmol/L (135-145); TOTAL PROTEIN 3.8 g/dL (6.7-8.2)
[2020-09-13 11:51] LABS: ABNORMAL LYMPHS % (MANUAL) 0 %; BAND NEUTROPHILS % (MANUAL) 0 %
[2020-09-13] MEDS ORDERED: IOVERSOL 320 100 ML VIAL IVP ONE ×2 (11:52→14:12)
[2020-09-13 12:11] LABS: LYMPHOCYTES # (MANUAL) 2.7 10^3/uL (1.5-3.5); LYMPHOCYTES % (MANUAL) 17 %; MONOCYTES # (MANUAL) 0.9 10^3/uL (0.0-1.0)
[2020-09-13 12:13] LABS: DIFFERENTIAL COMMENT MANUAL DIFFERENTIAL; PLATELET ESTIMATE, MANUAL INCREASED (>450,000) (NORMAL); PLATELET MORPHOLOGY NORMAL APPEARANCE (NORMAL)
[2020-09-13] MEDS ORDERED: cefTRIAXone 1 GM VIAL IVP STA (12:18)
[2020-09-13] MEDS ORDERED: FUROSEMIDE 20 MG/2 ML VIAL IVP STA (12:30)
[2020-09-13] MEDS ORDERED: ALBUMIN 25% 12.5 GM/50 ML VIAL IV STA (12:30)
[2020-09-13 12:37] LABS: PT - PROTHROMBIN TIME > 120.0 secs (9.9-12.6)
[2020-09-13 12:38] LABS: PARTIAL THROMBOPLASTIN TIME > 240.0 secs (24.9-33.3)
--- NOTE | 2020-09-13 13:16 | XRAY Report ---
PROCEDURE: Chest 1 View X-Ray INDICATIONS: chest pressure TECHNIQUE: One view of the chest was acquired. COMPARISON: None FINDINGS: Surgical changes and devices: Surgical clips at the gastroesophageal junction Lungs and pleura: No pleural effusions or pneumothorax. Lungs are clear. Mediastinum: Mediastinal contours appear normal. Heart size is normal. Bones and chest wall: No suspicious bony lesions. Overlying soft tissues appear unremarkable. IMPRESSION: No acute cardiopulmonary disease process. Reviewed by: Lizeth Melgar MD, PhD on 09/13/2020 12:15 PM MADDIE Approved by: Lizeth Melgar MD, PhD on 09/13/2020 12:15 PM AKDT Station ID: [id number]
--- NOTE | 2020-09-13 13:17 | CT Report ---
PROCEDURE: Abdomen/Pelvis W INDICATIONS: GI bleeding; lower abd cramps CONTRAST: IV CONTRAST: Optiray 320 ml: 100 PO CONTRAST: *NO PO CONTRAST TECHNIQUE: After the administration of IV contrast, 5 mm thick sections acquired from the diaphragms to the symp hysis. 5 mm thick coronal and sagittal reformats were acquired. For radiation dose reduction, the f ollowing was used: automated exposure control, adjustment of mA and/or kV according to patient size. COMPARISON: None. FINDINGS: Image quality: Excellent. ABDOMEN: Lung bases: Lung bases are clear. Heart size is normal. Solid organs: Hepatic steatosis. Spleen unremarkable. Sub-5 mm gallstone incidentally noted. Biliary system is non dilated. Within the body the pancreas there is a complex fluid collection measuring 3. 8 x 3.5 cm. There is surrounding peripancreatic stranding. No adrenal nodules. Subcentimeter renal foci which are statistically cysts, however too to character ize accurately and therefore technically indeterminate. Peritoneum and bowel: Postsurgical changes at the GE junction. No free fluid or air. Nodes and vessels: No retroperitoneal or mesenteric adenopathy by size criteria. Aorta and inferior vena cava are normal in size. Miscellaneous: No ventral hernias. Circumferential body wall edema in the subcutaneous tissues. PELVIS: Genitourinary: Bladder wall thickness is normal. Miscellaneous: No inguinal hernias or adenopathy. Bones: No suspicious bony lesions. No vertebral body compression fractures. IMPRESSION: Large complex fluid collection within the body of the pancreas as detailed above with surrounding per ipancreatic stranding. This could reflect acute pancreatitis, with possible pseudocyst or abscess for mation. However, underlying cystic pancreatic neoplasm cannot be excluded consider follow-up with blue creatic protocol contrast enhanced MRI after the patient's acute episode has resolved, as clinical delgado spicion dictates. Hepatic steatosis Incidental cholelithiasis Additional chronic and incidental findings as above. Reviewed by: Ed Amor MD on 09/13/2020 1:16 PM PDT Approved by: Ed Amor MD on 09/13/2020 1:16 PM PDT Station ID: [id number]
[2020-09-13] MEDS ORDERED: fentaNYL 100 MCG/2 ML VIAL IVP STA (14:32)
[2020-09-13] MEDS ORDERED: PANTOPRAZOLE 40 MG VIAL IVP STA (14:32)
[2020-09-13 14:56] LABS: PARTIAL THROMBOPLASTIN TIME > 240.0 secs (24.9-33.3); PT - PROTHROMBIN TIME > 120.0 secs (9.9-12.6)
[2020-09-13 14:57] LABS: INR > 10.0 (0.8-1.2)
[2020-09-13] MEDS ORDERED: SODIUM CHLORIDE 0.9% 500 ML IV STA (17:18)
[2020-09-13] MEDS ORDERED: PHYTONADIONE 10 MG/ML AMP IVP STA (18:52)
--- NOTE | 2020-09-13 18:54 | ED Physician Documentation ---
ED Addendum - Addendum Addendum: 09/13/20 18:53 S/o from Dr Dougherty at shift change. Briefly this is a woman with history of Flaquita-en-Y gastric bypass with recent admission to [facility] for GI bleeding and found to have a an ulcer at the GJ with a visible vessel and active bleeding that was clipped with 3 clips. She now has developed recurrent GI bleeding and has some signs of shock with a tony blood pressure of 66/35 and a hemoglobin of 4. At signout Dr. Dougherty had already tried [facility] and [facility]. Both were full. We were trying to [facility]. I spoke with GI there who recommended vitamin K IV, but confirmed that they could not accept her in transfer due to capacity. Asked the COPYHOLDER to call [facility]. 09/13/20 20:[address] Micheal Willett to [facility] at approximately 8:20 PM and cobras were completed. Repeat labs were ordered. At that Juncture she had already received 3 units of PRBCs and some FFP. 09/13/20 20:47 Diagnosis 1. Upper GI bleeding 2. Coagulopathy of unclear etiology 3. history of Flaquita-en-Y gastric bypass Condition critical Disposition: Transfer to [facility] for higher level of care Critical care time provided by myself, 40 minutes, mostly in lab review and chart review as well as counseling of the patient and medical consultations. 09/13/20 22:00 After transfusions of blood products and FFP labs had improved significantly, but not normalized. 09/13/20 22:01
[2020-09-13 21:35] VITALS: BP 98/68
[2020-09-13 21:40] LABS: BASOPHILS % (AUTO) 0.4 %; HGB - HEMOGLOBIN 7.9 g/dL (12.0-16.0); LYMPHOCYTES % (AUTO) 5.8 %; MEAN CORPUSCULAR HGB CONC 33.1 g/dL (32.0-36.0); MEAN CORPUSCULAR VOLUME 90.9 fL (81.0-99.0); MEAN PLATELET VOLUME 9.5 fL (7.9-10.8); MONOCYTES % (AUTO) 7.6 %; NEUTROPHILS % (AUTO) 82.1 %; PLT - PLATELET COUNT 448 10^3/uL (130-450); RED BLOOD COUNT 2.63 10^6/uL (4.20-5.40); RED CELL DISTRIBUTION WIDTH 17.7 % (12.0-15.0); WHITE BLOOD COUNT 32.2 x10^3/uL (4.8-10.8)
[2020-09-13 21:44] LABS: ABNORMAL LYMPHS % (MANUAL) 0 %
[2020-09-13 21:46] LABS: INR 3.7 (0.8-1.2); PT - PROTHROMBIN TIME 37.7 secs (9.9-12.6)
[2020-09-13 21:48] LABS: CREATININE 0.8 mg/dL (0.4-1.0)
[2020-09-13 21:56] LABS: BAND NEUTROPHILS % (MANUAL) 6 %; DIFFERENTIAL COMMENT MANUAL DIFFERENTIAL; LYMPHOCYTES # (MANUAL) 2.9 10^3/uL (1.5-3.5); LYMPHOCYTES % (MANUAL) 9 %; MONOCYTES # (MANUAL) 0.3 10^3/uL (0.0-1.0); MYELOCYTES % (MANUAL) 1 %; PLATELET ESTIMATE, MANUAL NORMAL (130-450,000) (NORMAL); PLATELET MORPHOLOGY NORMAL APPEARANCE (NORMAL); RBC MORPHOLOGY (MULTIPLE) 1+ ANISOCYTOSIS (NORMAL)
== END 2020-09-13 21:50 | disposition short-term general hospital (02) ==
LOC: EDUNIT# → ED 11:01
DX: K92.1 Melena (principal); D68.9 Coagulation defect, unspecified; D64.9 Anemia, unspecified; I95.9 Hypotension, unspecified; R60.0 Localized edema; Z87.11 Personal history of peptic ulcer disease; Z98.84 Bariatric surgery status; D37.8 Neoplasm of uncertain behavior of other specified digestive organs; K80.20 Calculus of gallbladder without cholecystitis without obstruction; K76.0 Fatty (change of) liver, not elsewhere classified
CPT/HCPCS: 36415; 36430; 51702; 71045; 74177; 80048; 80053; 80320; 83605; 83690; 85025; 85384; 85610; 85730; 86850; 86900; 86901; 86922; 93005; 96365; 96375; 99291; 99292; P9016; P9017; P9047; Q9967

== ENCOUNTER 2020-09-13 21:56 | Outpatient (CLI) | payer BC | END 2020-09-13 21:57 | disposition short-term general hospital (02) | LOC: EMS 21:56 | PROVIDERS: ATTEND Surgery | DX: K92.2 Gastrointestinal hemorrhage, unspecified (principal) | CPT/HCPCS: A0425; A0426 ==